=== PATIENT | male | born 1995 | race Caucasian/White ===

== ENCOUNTER 2016-12-09 09:25 | Emergency (ER) | payer SELFPAY ==
[~2016-12-09] VITALS: Ht 180.3 cm; Wt 79.4 kg
[~2016-12-09 09:25] MED LIST: LIDO20SO PO
[2016-12-09 09:36] VITALS: BP 137/84
--- NOTE | 2016-12-09 09:36 | PHYS DOC ---
Past Medical History Past Medical History: Anxiety, Kidney Stone, Other Additional Past Medical Histor: Heart Palpitations Past Surgical History: Other Additional Past Surgical Histo: Lithotripsy Alcohol Use: Rarely Drug Use: None Adult General Chief Complaint Chief Complaint: SORE THROAT [facility] HPI Patient is a 21 year old male who presents with sore throat. States having sinus congestion draining for the last several days. He states that throats or been bothered for the last 2 days. He states he's felt feverish at times. He denies any trismus or change in his voice. He had taken Motrin and states has not been helping. He denies cough or shortness of breath. He states when he does get up to walk he feels weaker than normal. Review of Systems Review of Systems Constitutional: Denies fever or chills [] Eyes: Denies change in visual acuity, redness, or eye pain [] HENT: Positive for nasal congestion or sore throat [] Respiratory: Denies cough or shortness of breath [] Cardiovascular: No additional information not addressed in HPI [] GI: Denies abdominal pain, nausea, vomiting, bloody stools or diarrhea [] : Denies dysuria or hematuria [] Musculoskeletal: Denies back pain or joint pain [] Integument: Denies rash or skin lesions [] Neurologic: Denies headache, focal weakness or sensory changes [] Endocrine: Denies polyuria or polydipsia [] Allergies Allergies Allergies Coded Allergies Type Severity Reaction Last Updated Verified No Known Drug Allergies 07/26/15 No Physical Exam Physical Exam Constitutional: Well developed, well nourished, no acute distress, non-toxic appearance. [] HENT: Normocephalic, atraumatic, bilateral external ears normal, oropharynx moist with erythema throughout the posterior pharynx without any exudates, nose normal. Patient denies any tenderness across the maxillary facial sinuses [] Eyes: PERRLA, EOMI, conjunctiva normal, no discharge. [] Neck: Normal range of motion, no tenderness, supple, no stridor. [] Cardiovascular:Heart rate regular rhythm, no murmur [] Lungs & Thorax: Bilateral breath sounds clear to auscultation [] Abdomen: Bowel sounds normal, soft, no tenderness, no masses, no pulsatile masses. [] Skin: Warm, dry, no erythema, no rash. [] Back: No tenderness, no CVA tenderness. [] Extremities: No tenderness, no cyanosis, no clubbing, ROM intact, no edema. [] Neurologic: Alert and oriented X 3, normal motor function, normal sensory function, no focal deficits noted. [] Psychologic: Affect normal, judgement normal, mood normal. [] Current Patient Data Vital Signs Vital Signs Date Time Temp Pulse Resp B/P Pulse Ox O2 Delivery O2 Flow Rate FiO2 12/09/16 09:36 99.0 94 16 100 Room Air 99.0 EKG EKG [] Radiology/Procedures Radiology/Procedures [] Impressions: Strep throat Course & Med Decision Making Course & Med Decision Making Pertinent Labs and Imaging studies reviewed. (See chart for details) He is positive for strep throat. We'll discharge home with amoxicillin 500 mg twice a day for the next 10 days. Patient's follow-up primary care physician he is to return to ER for worsening pain or other concerns. He is also be discharged with tablets of Viola. Dragon Disclaimer Dragon Disclaimer This electronic medical record was generated, in whole or in part, using a voice recognition dictation system. Departure Departure Impression: Primary Impression: Pharyngitis, acute Disposition: HOME, SELF-CARE Condition: STABLE Referrals: NO PCP (PCP) Patient Instructions: Strep Throat Additional Instructions: You do have strep throat. He taken amoxicillin next 10 days. Return ER if you have trouble swallowing, breathing, speaking or other concerns. You can take Viola to narcotic pain medicine as needed for pain. Please do not drive while taking this medicine while driving, as it can impair your judgment and make you sleepy. Scripts Hydrocodone/Apap 5-325 (Viola 5-325 Tablet)1 Each Tablet1-2 Tab PO PRN Q6HRS PRN PAIN #14 TAB Ref 0 Prov:NATALIYA TORRES MD 12/09/16 Amoxicillin 500 Mg Capsule1 Cap PO BID #20 CAP Prov:NATALIYA TORRES MD 12/09/16 NATALIYA TORRES MD Dec 09, 2016 09:36
[2016-12-09 10:22] LABS: NEGATIVE OBC STREP NEG; POSITIVE OBC STREP POS
[2016-12-09] MEDS ORDERED: HYDR-971 PO (10:22)
[2016-12-09] MEDS ORDERED: AMOX500C PO (10:22)
== END 2016-12-09 10:44 | disposition home or self-care (01) ==
LOC: ER 09:25
DX: J02.0 Streptococcal pharyngitis (principal); F41.9 Anxiety disorder, unspecified; Z87.442 Personal history of urinary calculi
CPT/HCPCS: 87880; 99283

== ENCOUNTER 2016-12-09 20:39 | Emergency (ER) | payer SELFPAY ==
[~2016-12-09] VITALS: Ht 180.3 cm; Wt 79.4 kg
[~2016-12-09 20:39] MED LIST changes: +AMOX500C PO; +HYDR-971 PO
[2016-12-09 21:26] VITALS: BP 142/72
[2016-12-09] MEDS ORDERED: DEXAMETHASONE SOD PHOS 20 MG/5 ML VIAL. IM ONE (21:45)
[2016-12-09] MEDS ORDERED: IBUPROFEN 600 MG TABLET. PO ONE (21:45)
[2016-12-09] MEDS ORDERED: PENICILLIN G BENZATHINE LA 1,200,000 UNIT/2 ML DISP.SYRIN. IM ONE (21:45)
--- NOTE | 2016-12-09 22:07 | PHYS DOC ---
Past Medical History Past Medical History: Anxiety, Kidney Stone, Other Additional Past Medical Histor: Heart Palpitations Past Surgical History: Other Additional Past Surgical Histo: Lithotripsy Additional Information: Nonsmoker Alcohol Use: Rarely Drug Use: None Adult General Chief Complaint Chief Complaint: FEVER HPI HPI Patient is a 21 year old male who presents with sore throat and fever. He was seen today in this emergency department and diagnosed with strep throat. He was prescribed amoxicillin and Del Rey. He states that he took 2 doses of the amoxicillin and 3 doses of the [place] without relief of his pain in his throat or his fever. He had a temperature up to 103.5F this evening. He last took Del Rey at 1800. He does not have a PCP. Review of Systems Review of Systems Constitutional: Reports fever. Eyes: Denies change in visual acuity, redness, or eye pain. [] HENT: Denies nasal congestion. Reports sore throat and bilateral ear pain. Respiratory: Denies cough or shortness of breath. [] Integument: Denies rash or skin lesions. [] Neurologic: Denies headache. [] Current Medications Current Medications Current Medications Medications (Trade) Dose Ordered Sig/Toni Start Time Stop Time Status Last Admin Dose Admin Dexamethasone Sodium Phosphate (Decadron) 10 mg 1X ONCE 12/09/16 21:45 12/09/16 21:46 DC 12/09/16 21:45 10 MG Ibuprofen (Motrin) 600 mg 1X ONCE 12/09/16 21:45 12/09/16 21:46 DC 12/09/16 21:45 600 MG Penicillin G Benzathine (Bicillin L-A) 1,200,000 unit 1X ONCE 12/09/16 21:45 12/09/16 21:46 DC 12/09/16 21:47 1,200,000 UNIT Allergies Allergies Allergies Coded Allergies Type Severity Reaction Last Updated Verified No Known Drug Allergies 07/26/15 No Physical Exam Physical Exam Constitutional: Well developed, well nourished, no acute distress, non-toxic appearance. [] HENT: Normocephalic, atraumatic, bilateral external ears normal, oropharynx moist, no oral exudates, nose normal. Bilateral TMs without erythema or bulging. There is posterior pharyngeal erythema with bilateral tonsillar edema and exudates. There is no peritonsillar abscess or uvular deviation. There is no trismus. Eyes: PERRLA, EOMI, conjunctiva normal, no discharge. [] Neck: Normal range of motion, no tenderness, supple, no stridor. [] Cardiovascular: Heart rate regular rhythm, no murmur [] Lungs & Thorax: Bilateral breath sounds clear to auscultation without wheezes, rales, or rhonchi. Skin: Warm, dry, no erythema, no rash. [] Neurologic: Alert and oriented X 3, normal motor function, normal sensory function, no focal deficits noted. [] Psychologic: Affect normal, judgement normal, mood normal. [] Current Patient Data Vital Signs Vital Signs Date Time Temp Pulse Resp B/P Pulse Ox O2 Delivery O2 Flow Rate FiO2 12/09/16 21:26 101.5 104 18 97 Room Air 101.5 EKG EKG [] Radiology/Procedures Radiology/Procedures [] Course & Med Decision Making Course & Med Decision Making Pertinent Labs and Imaging studies reviewed. (See chart for details) Patient presents with fever and sore throat with diagnosis of strep throat today. He is given IM Bicillin LA and Decadron in the emergency department this evening. He is instructed to discontinue the amoxicillin prescribed previously today. He may continue taking Del Rey for pain and fever. He is instructed to take ibuprofen for fever as well but not to add additional Tylenol for fever relief. He is instructed to increase fluids and rest. Return precautions were discussed. He verbalizes understanding and agrees with plan. Dragon Disclaimer Dragon Disclaimer This electronic medical record was generated, in whole or in part, using a voice recognition dictation system. Departure Departure Impression: Primary Impression: Strep throat Disposition: 01 HOME, SELF-CARE Condition: STABLE Referrals: NO PCP (PCP) Patient Instructions: Strep Throat, [id number] Additional Instructions: You were given a shot of antibiotics and a shot of steroids in the emergency department this evening. You do not need to complete the antibiotic pills prescribed earlier today. The antibiotic shot is sufficient to treat your strep throat. You may continue to take the pain medication prescribed earlier today. This medication contains Tylenol, which will also help your fever. You may also take ibuprofen to decrease her fever. Do not take Tylenol in addition to the prescribed pain medication. To help your sore throat, you may mix liquid Benadryl and Maalox in a 50/50 solution. Swish, gargle, and either swallow or spit out. Return to the emergency department if you have high fever not responding to medication, difficulty breathing, difficulty swallowing, or other new or concerning symptoms. CONSUELO CUELLAR Dec 09, 2016 22:07
== END 2016-12-09 22:13 | disposition home or self-care (01) ==
LOC: ER 20:39
DX: J02.0 Streptococcal pharyngitis (principal); H92.03 Otalgia, bilateral; F41.9 Anxiety disorder, unspecified; Z87.442 Personal history of urinary calculi
CPT/HCPCS: 96372; 99284; J0561; J1100

== ENCOUNTER 2017-08-29 21:30 | Emergency (ER) | payer SELFPAY ==
[~2017-08-29] VITALS: Ht 177.8 cm; Wt 81.6 kg
--- NOTE | 2017-08-29 21:36 | PHYS DOC ---
Past Medical History Past Medical History: Anxiety, Kidney Stone, Other Additional Past Medical Histor: Heart Palpitations Past Surgical History: Other Additional Past Surgical Histo: Lithotripsy Alcohol Use: Rarely Drug Use: None Adult General Chief Complaint Chief Complaint: FLANK PAIN HPI HPI Patient is a 21 year old male who presents with dark colored urine. He states he has a history of kidney stones and on he notices urine very dark. He drank a lot of water. Upon Wednesday and Wednesday it returned. He states he's had intermittent left flank pain and presents to ER because his urine is dark again. He denies any pain currently, denies any nausea vomiting, states his been eating and drinking fine. He denies any drug or alcohol use. He denies any supplement's. Review of Systems Review of Systems Constitutional: Denies fever or chills [] Eyes: Denies change in visual acuity, redness, or eye pain [] HENT: Denies nasal congestion or sore throat [] Respiratory: Denies cough or shortness of breath [] Cardiovascular: No additional information not addressed in HPI [] GI: Denies abdominal pain, nausea, vomiting, bloody stools or diarrhea [] : Denies dysuria or hematuria [] Musculoskeletal: Denies back pain or joint pain [] Integument: Denies rash or skin lesions [] Neurologic: Denies headache, focal weakness or sensory changes [] Endocrine: Denies polyuria or polydipsia [] All other systems were reviewed and found to be within normal limits, except as documented in this note. Current Medications Current Medications Current Medications Medications (Trade) Dose Ordered Sig/[facility] Start Time Stop Time Status Last Admin Dose Admin Ondansetron HCl (Zofran) 4 mg 1X ONCE 08/29/17 22:00 08/29/17 22:01 DC Sodium Chloride 1,000 ml @ 1,000 mls/hr Q1H 08/29/17 22:00 08/29/17 22:59 DC 08/29/17 22:10 1,000 MLS/HR Allergies Allergies Allergies Coded Allergies Type Severity Reaction Last Updated Verified No Known Drug Allergies 07/26/15 No Physical Exam Physical Exam Constitutional: Well developed, well nourished, no acute distress, non-toxic appearance. [] HENT: Normocephalic, atraumatic, bilateral external ears normal, oropharynx moist, no oral exudates, nose normal. [] Eyes: PERRLA, EOMI, conjunctiva normal, no discharge. [] Neck: Normal range of motion, no tenderness, supple, no stridor. [] Cardiovascular:Heart rate regular rhythm, no murmur [] Lungs & Thorax: Bilateral breath sounds clear to auscultation [] Abdomen: Bowel sounds normal, soft, no tenderness, no masses, no pulsatile masses. [] Skin: Warm, dry, no erythema, no rash. [] Back: No tenderness, no CVA tenderness. [] Extremities: No tenderness, no cyanosis, no clubbing, ROM intact, no edema. [] Neurologic: Alert and oriented X 3, normal motor function, normal sensory function, no focal deficits noted. [] Psychologic: Affect normal, judgement normal, mood normal. [] Current Patient Data Vital Signs Vital Signs Date Time Temp Pulse Resp B/P (MAP) Pulse Ox O2 Delivery O2 Flow Rate FiO2 08/29/17 21:45 97.9 79 18 172/96 (121) 98 Room Air 97.9 Lab Values Laboratory Tests Test 08/29/17 22:05 White Blood Count 8.4 x10^3/uL (4.0-11.0) Red Blood Count 5.07 x10^6/uL (4.30-5.70) Hemoglobin 15.6 g/dL (13.0-17.5) Hematocrit 44.6 % (39.0-53.0) Mean Corpuscular Volume 88 fL (79-100) Mean Corpuscular Hemoglobin 31 pg (25-35) Mean Corpuscular Hemoglobin Concent 35 g/dL (31-37) Red Cell Distribution Width 12.2 % (11.5-14.5) Platelet Count 312 x10^3/uL (140-400) Neutrophils (%) (Auto) 54 % (31-73) Lymphocytes (%) (Auto) 38 % (24-48) Monocytes (%) (Auto) 6 % (0-9) Eosinophils (%) (Auto) 1 % (0-3) Basophils (%) (Auto) 1 % (0-3) Neutrophils # (Auto) 4.5 x10^3uL (1.8-7.7) Lymphocytes # (Auto) 3.2 x10^3/uL (1.0-4.8) Monocytes # (Auto) 0.5 x10^3/uL (0.0-1.1) Eosinophils # (Auto) 0.1 x10^3/uL (0.0-0.7) Basophils # (Auto) 0.1 x10^3/uL (0.0-0.2) Urine Collection Type Unknown Urine Color Yellow Urine Clarity Clear Urine pH 6.[address] 1.020 Urine Protein Negative mg/dL (NEG-TRACE) Urine Glucose (UA) Negative mg/dL (NEG) Urine Ketones (Stick) Negative mg/dL (NEG) Urine Blood Negative (NEG) Urine Nitrite Negative (NEG) Urine Bilirubin Negative (NEG) Urine Urobilinogen Dipstick 0.2 mg/dL (0.2 mg/dL) Urine Leukocyte Esterase Negative (NEG) Urine RBC Occ /HPF (0-2) Urine WBC Occ /HPF (0-4) Urine Squamous Epithelial Cells None /LPF Urine Amorphous Sediment Present /HPF Urine Bacteria 0 /HPF (0-FEW) Urine Mucus Slight /LPF Sodium Level 141 mmol/L (136-145) Potassium Level 3.6 mmol/L (3.5-5.1) Chloride Level 102 mmol/L (98-107) Carbon Dioxide Level 28 mmol/L (21-32) Anion Gap 11 (6-14) Blood Urea Nitrogen 15 mg/dL (8-26) Creatinine 1.3 mg/dL (0.7-1.3) Estimated GFR (Cockcroft-Gault) 69.7 Glucose Level 130 mg/dL (70-99) H Calcium Level 9.0 mg/dL (8.5-10.1) Total Bilirubin 0.4 mg/dL (0.2-1.0) Direct Bilirubin 0.1 mg/dL (0.0-0.2) Aspartate Amino Transferase (AST) 32 U/L (15-37) Alanine Aminotransferase (ALT) 66 U/L (16-63) H Alkaline Phosphatase 89 U/L (46-116) Creatine Kinase 145 U/L (39-308) Total Protein 7.9 g/dL (6.4-8.2) Albumin 4.4 g/dL (3.4-5.0) Urine Opiates Screen Neg (NEG) Urine Methadone Screen Neg (NEG) Urine Barbiturates Neg (NEG) Urine Phencyclidine Screen Neg (NEG) Urine Amphetamine/Methamphetamine Neg (NEG) Urine Benzodiazepines Screen Neg (NEG) Urine Cocaine Screen Neg (NEG) Urine Cannabinoids Screen Neg (NEG) Urine Ethyl Alcohol Neg (NEG) Laboratory Tests 08/29/17 22:05 Laboratory Tests 08/29/17 22:05 EKG EKG [] Radiology/Procedures Impressions: Dark urine Course & Med Decision Making Course & Med Decision Making Pertinent Labs and Imaging studies reviewed. (See chart for details) Labs are nonacute. His UA does not show any blood he's not having any pain or discomfort. Therefore I do not believe he is getting kidney stone. He is instructed to stay hydrated and follow-up with primary care physician and urology if his symptoms come back. She being discharged in stable condition this time. Dragon Disclaimer Dragon Disclaimer This electronic medical record was generated, in whole or in part, using a voice recognition dictation system. Departure Departure Impression: Primary Impression: Urine discoloration Disposition: HOME, SELF-CARE Condition: STABLE Referrals: NO PCP (PCP) Patient Instructions: Clean Catch Urine Collection Additional Instructions: Your urinalysis, blood work did not show any acute abnormality's. Since your not having any pain or any other concerns at this time, you are being discharged home. If you develop flank pain, fevers, nausea or other concerns please return back to ER. [place] [id number] [address] [address]. Phone number is [phone]. You will need to find a primary care physician. You've been provided a list of primary care physicians. Please follow-up with the primary care physician within the next few days. NATALIYA TORRES MD Aug 29, 2017 21:36
[2017-08-29] MEDS ORDERED: ONDANSETRON PF 4 MG/2 ML VIAL. IV ONE (22:00)
[2017-08-29] MEDS ORDERED: IV NORMAL SALINE 1000ML BAG 1,000 ML IV SCH (22:00)
[2017-08-29 22:13] LABS: BASO # 0.1 x10^3/uL (0.0-0.2); BASO % 1 % (0-3); EOS % 1 % (0-3); HEMATOCRIT 44.6 % (39.0-53.0); HEMOGLOBIN 15.6 g/dL (13.0-17.5); LYMPH # 3.2 x10^3/uL (1.0-4.8); LYMPH % 38 % (24-48); MEAN CORPUSCULAR HEMOGLOBIN 31 pg (25-35); MEAN CORPUSCULAR HGB CONC 35 g/dL (31-37); MEAN CORPUSCULAR VOLUME 88 fL (79-100); MONO % 6 % (0-9); NEUT % 54 % (31-73); PLATELET COUNT 312 x10^3/uL (140-400); RED BLOOD COUNT 5.07 x10^6/uL (4.30-5.70); RED CELL DISTRIBUTION WIDTH 12.2 % (11.5-14.5); WHITE BLOOD COUNT 8.4 x10^3/uL (4.0-11.0)
[2017-08-29 22:14] LABS: BILIRUBIN,URINE NEGATIVE (NEG); GLUCOSE,URINE NEGATIVE (NEG); NITRITE,URINE NEGATIVE (NEG); PH,URINE 6.5; PROTEIN,URINE NEGATIVE (NEG-TRACE); UROBILINOGEN,URINE 0.2 mg/dL (0.2 mg/dL)
[2017-08-29 22:20] LABS: BACTERIA,URINE 0 /HPF (0-FEW); RBC,URINE OCC /HPF (0-2); WBC,URINE OCC /HPF (0-4)
[2017-08-29 22:22] LABS: CREATININE 1.3 mg/dL (0.7-1.3); GFR 69.7; POTASSIUM 3.6 mmol/L (3.5-5.1)
[2017-08-29 22:30] LABS: ALBUMIN 4.4 g/dL (3.4-5.0); DIRECT BILIRUBIN 0.1 mg/dL (0.0-0.2); TOTAL BILIRUBIN 0.4 mg/dL (0.2-1.0); TOTAL PROTEIN 7.9 g/dL (6.4-8.2)
[2017-08-29 23:10] LABS: BARBITURATES NEG (NEG); BENZODIAZEPINES NEG (NEG); CANNABINOIDS NEG (NEG); COCAINE NEG (NEG); METHADONE NEG (NEG); OPIATES NEG (NEG); PHENCYCLIDINE NEG (NEG)
[2017-08-29 23:15] VITALS: BP 125/65
== END 2017-08-29 23:45 | disposition home or self-care (01) ==
LOC: ER 21:30
DX: R39.198 Other difficulties with micturition (principal); Z87.442 Personal history of urinary calculi
CPT/HCPCS: 36415; 80048; 80076; 80307; 81001; 82550; 85025; 96360; 99284; J7030; G0479

== ENCOUNTER 2017-09-20 09:06 | Emergency (ER) | payer SELFPAY ==
[2017-09-20 10:15] LABS: ADD MAN DIFF? NO
[2017-09-20 10:18] LABS: BASO % 1 % (0-3); EOS # 0.2 x10^3/uL (0.0-0.7); EOS % 2 % (0-3); HEMATOCRIT 47.4 % (39.0-53.0); HEMOGLOBIN 16.2 g/dL (13.0-17.5); LYMPH # 2.5 x10^3/uL (1.0-4.8); LYMPH % 34 % (24-48); MEAN CORPUSCULAR HEMOGLOBIN 31 pg (25-35); MEAN CORPUSCULAR HGB CONC 34 g/dL (31-37); MEAN CORPUSCULAR VOLUME 90 fL (79-100); MONO # 0.7 x10^3/uL (0.0-1.1); MONO % 9 % (0-9); NEUT # 4.1 x10^3uL (1.8-7.7); NEUT % 55 % (31-73); PLATELET COUNT 320 x10^3/uL (140-400); RED BLOOD COUNT 5.29 x10^6/uL (4.30-5.70); WHITE BLOOD COUNT 7.5 x10^3/uL (4.0-11.0)
[2017-09-20] MEDS: IBUPROFEN 800 MG TABLET. PO (10:26)
[2017-09-20] MEDS: HYDROcodone/APAP 5/325MG 1 TAB TABLET PO (10:26)
[2017-09-20 10:43] LABS: URIC ACID 9.9 mg/dL (3.5-7.2)
[2017-09-20] MEDS: COLCHICINE 0.6 MG TABLET PO (11:20)
== END 2017-09-20 11:35 | disposition home or self-care (01) ==
LOC: ER 09:06
DX: M79.674 Pain in right toe(s) (principal); R79.89 Other specified abnormal findings of blood chemistry; M79.89 Other specified soft tissue disorders; F41.9 Anxiety disorder, unspecified; Z87.442 Personal history of urinary calculi
CPT/HCPCS: 36415; 73660; 84550; 85025; 99285

== ENCOUNTER 2017-10-13 13:16 | Emergency (ER) | payer OTHER ==
[2017-10-13 14:48] LABS: BILIRUBIN,URINE NEGATIVE (NEG); CLARITY,URINE CLEAR; COLOR,URINE YELLOW; GLUCOSE,URINE NEGATIVE (NEG); NITRITE,URINE NEGATIVE (NEG); PROTEIN,URINE NEGATIVE (NEG-TRACE); UROBILINOGEN,URINE 0.2 mg/dL (0.2 mg/dL)
[2017-10-13 15:03] LABS: BACTERIA,URINE 0 /HPF (0-FEW); RBC,URINE RARE /HPF (0-2); SQUAMOUS EPITHELIAL CELL,UR OCC /LPF; WBC,URINE RARE /HPF (0-4)
[2017-10-13 16:25] LABS: ADD MAN DIFF? NO
[2017-10-13] MEDS: HYDROmorphone 2 MG/ML VIAL IV (16:25)
[2017-10-13] MEDS: ONDANSETRON PF 4 MG/2 ML VIAL. IV (16:25)
[2017-10-13 16:27] LABS: BASO % 1 % (0-3); EOS # 0.1 x10^3/uL (0.0-0.7); EOS % 1 % (0-3); HEMATOCRIT 44.3 % (39.0-53.0); HEMOGLOBIN 15.5 g/dL (13.0-17.5); LYMPH # 2.1 x10^3/uL (1.0-4.8); LYMPH % 31 % (24-48); MEAN CORPUSCULAR HEMOGLOBIN 31 pg (25-35); MEAN CORPUSCULAR HGB CONC 35 g/dL (31-37); MEAN CORPUSCULAR VOLUME 88 fL (79-100); MONO # 0.4 x10^3/uL (0.0-1.1); MONO % 7 % (0-9); NEUT % 61 % (31-73); PLATELET COUNT 302 x10^3/uL (140-400); RED BLOOD COUNT 5.06 x10^6/uL (4.30-5.70); RED CELL DISTRIBUTION WIDTH 12.2 % (11.5-14.5); WHITE BLOOD COUNT 6.7 x10^3/uL (4.0-11.0)
[2017-10-13 16:36] LABS: ANION GAP 8 (6-14); BLOOD UREA NITROGEN 12 mg/dL (8-26); BUN/CREATININE RATIO 11 (6-20); CALCIUM 9.3 mg/dL (8.5-10.1); CARBON DIOXIDE 28 mmol/L (21-32); CHLORIDE 102 mmol/L (98-107); CREATININE 1.1 mg/dL (0.7-1.3); GFR 84.5; GLUCOSE 91 mg/dL (70-99); POTASSIUM 4.1 mmol/L (3.5-5.1); SODIUM 138 mmol/L (136-145)
[2017-10-13 16:42] LABS: ALBUMIN 4.3 g/dL (3.4-5.0); ALBUMIN/GLOBULIN RATIO 1.1 (1.0-1.7); ALK PHOS 92 U/L (46-116); ALT (SGPT) 76 U/L (16-63); AST (SGOT) 31 U/L (15-37); TOTAL BILIRUBIN 0.5 mg/dL (0.2-1.0); TOTAL PROTEIN 8.2 g/dL (6.4-8.2)
[2017-10-13] MEDS: IV NORMAL SALINE 1000ML BAG 1,000 ML IV (16:45)
== END 2017-10-13 18:00 | disposition home or self-care (01) ==
LOC: ER 13:16
DX: N20.1 Calculus of ureter (principal); Z87.442 Personal history of urinary calculi; Z88.8 Allergy status to other drugs, medicaments and biological substances
CPT/HCPCS: 36415; 74176; 80053; 81001; 85025; 87491; 87591; 96361; 96374; 96375; 99285-25; J1170; J2405; J7030

== ENCOUNTER 2018-09-22 08:38 | Emergency (ER) | payer SELFPAY ==
[~2018-09-22] VITALS: Ht 177.8 cm; Wt 86.2 kg
[~2018-09-22 08:38] MED LIST changes: +COLC0.6C3 PO; +HYDR-3164 PO; -HYDR-971 PO; +IBUP-1060 PO; +MECL25TA3 PO; +ONDA4TAB10 PO; +OXYC1TAB15 PO; +TAMS0.4C97 PO
[2018-09-22 08:59] VITALS: BP 152/87
--- NOTE | 2018-09-22 09:42 | PHYS DOC ---
Past Medical History Past Medical History: Anxiety, Asthma, Kidney Stone, Other Additional Past Medical Histor: Heart Palpitations; ear infections, strep Past Surgical History: Other Additional Past Surgical Histo: Lithotripsy Alcohol Use: Rarely Drug Use: None Adult General Chief Complaint Chief Complaint: SORE THROAT HPI HPI Patient is a 22 year old male who presents to the emergency room today with complaints of sore throat since this morning. He denies any fever, ear pain, cough, nausea, vomiting, diarrhea, or rash. Patient states that he has had a lot of postnasal drainage with this sore throat. He denies any shortness of breath or difficulty swallowing. Review of Systems Review of Systems Constitutional: Denies fever or chills [] HENT: See history of present illness Respiratory: Denies cough or shortness of breath [] GI: Denies abdominal pain, nausea, vomiting, or diarrhea [] Integument: Denies rash or skin lesions [] Neurologic: Denies headache, focal weakness or sensory changes [] Complete systems were reviewed and found to be within normal limits, except as documented in this note. Allergies Allergies Allergies Coded Allergies Type Severity Reaction Last Updated Verified Corticosteroids (Glucocorticoids) Allergy Intermediate 12/21/17 Yes Physical Exam Physical Exam Constitutional: Well developed, well nourished, no acute distress, non-toxic appearance. [] HENT: Normocephalic, atraumatic, bilateral external ears normal, bilateral TMs normal, cobblestone appearance of posterior pharynx, 2+ tonsils bilaterally, tonsil stone present in left tonsil, moderate erythema posterior pharynx, oropharynx moist, no oral exudates, nose normal. [] Eyes: conjunctiva normal, no discharge. [] Neck: Normal range of motion, no tenderness, no lymphadenopathy, no stridor. [] Cardiovascular:Heart rate regular rhythm, no murmur [] Lungs & Thorax: Bilateral breath sounds clear to auscultation [] Skin: Warm, dry, no erythema, no rash. [] Neurologic: Alert and oriented X 3, normal motor function, normal sensory function, no focal deficits noted. [] Psychologic: Affect normal, judgement normal, mood normal. [] Current Patient Data Vital Signs Vital Signs Date Time Temp Pulse Resp B/P (MAP) Pulse Ox O2 Delivery O2 Flow Rate FiO2 09/22/18 08:59 98.1 100 20 152/87 (108) 98 Room Air 98.1 EKG EKG [] Radiology/Procedures Radiology/Procedures [] Course & Med Decision Making Course & Med Decision Making Pertinent Labs and Imaging studies reviewed. (See chart for details) [] Dragon Disclaimer Dragon Disclaimer This electronic medical record was generated, in whole or in part, using a voice recognition dictation system. Departure Departure Impression: Primary Impression: Pharyngitis, acute Additional Impression: Strep throat Disposition: HOME, SELF-CARE Condition: STABLE Referrals: MELISSA REDMAN (PCP) Patient Instructions: Viral and Bacterial Pharyngitis, [id number] Additional Instructions: Recommend warm salt water gargles as needed for relief of discomfort. Alternate Tylenol and ibuprofen as needed for fever/pain. Follow-up with primary care doctor if symptoms persist. Return to the ER if symptoms worsen. Problem Qualifiers Primary Impression: Pharyngitis, acute Pharyngitis/tonsillitis etiology: unspecified etiology Qualified Codes: J02.9 - Acute pharyngitis, unspecified JT MARQUEZ YOKE SETTER Sep 22, 2018 09:42
[2018-09-22] MEDS ORDERED: DEXAMETHASONE SOD PHOS 20 MG/5 ML VIAL. PO ONE (09:45)
== END 2018-09-22 10:02 | disposition home or self-care (01) ==
LOC: ER 08:38
DX: J02.0 Streptococcal pharyngitis (principal); B95.5 Unspecified streptococcus as the cause of diseases classified elsewhere; J45.909 Unspecified asthma, uncomplicated; Z88.8 Allergy status to other drugs, medicaments and biological substances
CPT/HCPCS: 87070; 87880; 99283

== ENCOUNTER 2019-06-01 14:49 | Emergency (ER) | payer OTHER ==
[~2019-06-01] VITALS: Ht 182.9 cm; Wt 97.5 kg
[2019-06-01] MEDS ORDERED: LABETALOL 20 MG/4 ML DISP.SYRIN. IVP STA (15:07)
--- NOTE | 2019-06-01 15:11 | PHYS DOC ---
Past Medical History Past Medical History: Anxiety, Asthma, Kidney Stone, Other Additional Past Medical Histor: Heart Palpitations; ear infections, strep (JAVID CORONADO APRN) Past Surgical History: Other Additional Past Surgical Histo: Lithotripsy (JAVID CORONADO APRN) Alcohol Use: Rarely Drug Use: None (JAVID CORONADO APRN) Adult General Chief Complaint Chief Complaint: HEADACHE HPI HPI Patient is a 23 year old male who presents with a headache this been ongoing for 2 weeks. The patient does not have a history of migraines. The patient states that the headache is been accompanied by blurry vision. The patient's blood pressure in the room was 170/92. She rates his pain is 2 out of 10 in severity and sharp, has been taking ibuprofen at home which is helped his headache. (JAVID CORONADO APRN) Review of Systems Review of Systems Constitutional: Denies fever or chills [] Eyes: Denies change in visual acuity, redness, or eye pain [] HENT: Denies nasal congestion or sore throat [] Respiratory: Denies cough or shortness of breath [] Cardiovascular: No additional information not addressed in HPI [] GI: Denies abdominal pain, nausea, vomiting, bloody stools or diarrhea [] : Denies dysuria or hematuria [] Musculoskeletal: Denies back pain or joint pain [] Integument: Denies rash or skin lesions [] Neurologic: Reports headache and bilateral blurry vision. Denies focal weakness or sensory changes [] Endocrine: Denies polyuria or polydipsia [] Complete systems were reviewed and found to be within normal limits, except as documented in this note. (JAVID CORONADO APRN) Current Medications Current Medications Current Medications Medications (Trade) Dose Ordered Sig/Toni Start Time Stop Time Status Last Admin Dose Admin Labetalol HCl (Normodyne Iv Push) 10 mg 1X STAT 06/01/19 15:07 06/01/19 15:10 DC 06/01/19 15:21 10 MG (JUSTO VASQUEZ MD) Allergies Allergies Allergies Coded Allergies Type Severity Reaction Last Updated Verified Corticosteroids (Glucocorticoids) Allergy Intermediate 12/21/17 Yes (JUSTO VASQUEZ MD) Physical Exam Physical Exam Constitutional: Well developed, well nourished, no acute distress, non-toxic appearance. [] HENT: Normocephalic, atraumatic, bilateral external ears normal, oropharynx moist, no oral exudates, nose normal. [] Eyes: PERRLA, EOMI, conjunctiva normal, no discharge. [] Neck: Normal range of motion, no tenderness, supple, no stridor. [] Cardiovascular:Heart rate regular rhythm, no murmur [] Lungs & Thorax: Bilateral breath sounds clear to auscultation [] Abdomen: Bowel sounds normal, soft, no tenderness, no masses, no pulsatile masses. [] Skin: Warm, dry, no erythema, no rash. [] Back: No tenderness, no CVA tenderness. [] Extremities: No tenderness, no cyanosis, no clubbing, ROM intact, no edema. [] Neurologic: Alert and oriented X 3, normal motor function, normal sensory function, no focal deficits noted. Visuals weir are intact bilaterally. Psychologic: Affect normal, judgement normal, mood normal. [] (JAVID CORONADO APRN) Current Patient Data Vital Signs Vital Signs Date Time Temp Pulse Resp B/P (MAP) Pulse Ox O2 Delivery O2 Flow Rate FiO2 06/01/19 15:21 87 170/92 06/01/19 15:03 99.2 14 97 Room Air 99.2 (JUSTO VASQUEZ MD) Lab Values Laboratory Tests Test 06/01/19 15:17 White Blood Count 7.2 x10^3/uL (4.0-11.0) Red Blood Count 5.14 x10^6/uL (4.30-5.70) Hemoglobin 15.9 g/dL (13.0-17.5) Hematocrit 45.0 % (39.0-53.0) Mean Corpuscular Volume 88 fL (79-100) Mean Corpuscular Hemoglobin 31 pg (25-35) Mean Corpuscular Hemoglobin Concent 35 g/dL (31-37) Red Cell Distribution Width 12.4 % (11.5-14.5) Platelet Count 298 x10^3/uL (140-400) Neutrophils (%) (Auto) 57 % (31-73) Lymphocytes (%) (Auto) 34 % (24-48) Monocytes (%) (Auto) 7 % (0-9) Eosinophils (%) (Auto) 2 % (0-3) Basophils (%) (Auto) 1 % (0-3) Neutrophils # (Auto) 4.1 x10^3/uL (1.8-7.7) Lymphocytes # (Auto) 2.4 x10^3/uL (1.0-4.8) Monocytes # (Auto) 0.5 x10^3/uL (0.0-1.1) Eosinophils # (Auto) 0.1 x10^3/uL (0.0-0.7) Basophils # (Auto) 0.0 x10^3/uL (0.0-0.2) Sodium Level 143 mmol/L (136-145) Potassium Level 4.3 mmol/L (3.5-5.1) Chloride Level 105 mmol/L (98-107) Carbon Dioxide Level 29 mmol/L (21-32) Anion Gap 9 (6-14) Blood Urea Nitrogen 11 mg/dL (8-26) Creatinine 1.1 mg/dL (0.7-1.3) Estimated GFR (Cockcroft-Gault) 83.0 BUN/Creatinine Ratio 10 (6-20) Glucose Level 103 mg/dL (70-99) H Calcium Level 9.8 mg/dL (8.5-10.1) Total Bilirubin 0.4 mg/dL (0.2-1.0) Aspartate Amino Transferase (AST) 44 U/L (15-37) H Alanine Aminotransferase (ALT) 106 U/L (16-63) H Alkaline Phosphatase 82 U/L (46-116) Troponin I Quantitative < 0.017 ng/mL (0.000-0.055) Total Protein 8.0 g/dL (6.4-8.2) Albumin 4.3 g/dL (3.4-5.0) Albumin/Globulin Ratio 1.2 (1.0-1.7) Laboratory Tests 06/01/19 15:17 Laboratory Tests 06/01/19 15:17 (JUSTO VASQUEZ MD) Lab Values Laboratory Tests Test 06/01/19 15:17 White Blood Count 7.2 x10^3/uL (4.0-11.0) Red Blood Count 5.14 x10^6/uL (4.30-5.70) Hemoglobin 15.9 g/dL (13.0-17.5) Hematocrit 45.0 % (39.0-53.0) Mean Corpuscular Volume 88 fL (79-100) Mean Corpuscular Hemoglobin 31 pg (25-35) Mean Corpuscular Hemoglobin Concent 35 g/dL (31-37) Red Cell Distribution Width 12.4 % (11.5-14.5) Platelet Count 298 x10^3/uL (140-400) Neutrophils (%) (Auto) 57 % (31-73) Lymphocytes (%) (Auto) 34 % (24-48) Monocytes (%) (Auto) 7 % (0-9) Eosinophils (%) (Auto) 2 % (0-3) Basophils (%) (Auto) 1 % (0-3) Neutrophils # (Auto) 4.1 x10^3/uL (1.8-7.7) Lymphocytes # (Auto) 2.4 x10^3/uL (1.0-4.8) Monocytes # (Auto) 0.5 x10^3/uL (0.0-1.1) Eosinophils # (Auto) 0.1 x10^3/uL (0.0-0.7) Basophils # (Auto) 0.0 x10^3/uL (0.0-0.2) Sodium Level 143 mmol/L (136-145) Potassium Level 4.3 mmol/L (3.5-5.1) Chloride Level 105 mmol/L (98-107) Carbon Dioxide Level 29 mmol/L (21-32) Anion Gap 9 (6-14) Blood Urea Nitrogen 11 mg/dL (8-26) Creatinine 1.1 mg/dL (0.7-1.3) Estimated GFR (Cockcroft-Gault) 83.0 BUN/Creatinine Ratio 10 (6-20) Glucose Level 103 mg/dL (70-99) H Calcium Level 9.8 mg/dL (8.5-10.1) Total Bilirubin 0.4 mg/dL (0.2-1.0) Aspartate Amino Transferase (AST) 44 U/L (15-37) H Alanine Aminotransferase (ALT) 106 U/L (16-63) H Alkaline Phosphatase 82 U/L (46-116) Troponin I Quantitative < 0.017 ng/mL (0.000-0.055) Total Protein 8.0 g/dL (6.4-8.2) Albumin 4.3 g/dL (3.4-5.0) Albumin/Globulin Ratio 1.2 (1.0-1.7) Laboratory Tests 06/01/19 15:17 Laboratory Tests 06/01/19 15:17 (JAVID CORONADO APRN) EKG EKG EKG interpreted by Dr. Moon Sullivan with rate of 82. NO STEMI.[] (JAVID CORONADO APRN) Radiology/Procedures Radiology/Procedures [][facility] [address] [place] [address] IMAGING REPORT Signed PATIENT: CORA MANN ACCOUNT: [id number] : 1995 LOCATION: ER AGE: 23 SEX: M EXAM STATUS: REG ER ORD. PHYSICIAN: JAVID CORONADO APRN REASON: headache PROCEDURE: CT HEAD WO CONTRAST PQRS Compliance statement: One or more of the following individualized dose reduction techniques were utilized for this examination: 1. Automated exposure control. 2. Adjustment of the mA and/or kV according to patient size. 3. Use of iterative reconstruction technique. Indication:Headache. TECHNIQUE: CT head without IV contrast COMPARISON: 12/21/2017. FINDINGS: No pathologic extra-axial or intra-axial fluid collection. The ventricles and basal cisterns are within normal limits. No acute intracranial bleed. No focal loss of brady-white differentiation. Visualized orbits within normal limits. No suspicious calvarial lesion. Visualized paranasal sinuses and mastoid air cells are clear. IMPRESSION: No acute intracranial process on this noncontrast CT. Electronically signed by: Jose Urena DO (06/01/2019 4:04 PM) [id number] DICTATED and SIGNED BY: JOSE URENA DO DATE: 06/01/19 1604 (JAVID CORONADO APRN) Course & Med Decision Making Course & Med Decision Making Pertinent Labs and Imaging studies reviewed. (See chart for details) Appears to be having a headache and blurry vision related to hypertension. Will check for end-organ damage and get labs, and CT. Labs and imaging is unremarkable. Will d/c home to follow up with Neuro and will start on Norvasc for HTN. Will have follow up with PCP for further management. (JAVID CORONADO APRN) Course & Med Decision Making 4:40 PM: ER PHYSICIAN ATTENDING NOTE: Patient presented to the emergency department for evaluation. He states that for the past 2 weeks, he has been having waxing and waning headaches, mostly starting from his neck, and radiating up towards the left occiput, but also present in the frontal area, between his eyes. He states he has some intermittent blurred vision, but this is not persistent. He reports his vision is normal now. He has not had any neck stiffness, fevers, or vomiting. He has not had any numbness or focal weakness. He states that he has had more serious headaches in the past, and he considers headaches to be somewhat mild. This is not "the worst headache of his life", and did not begin abruptly. He denies any trauma. PHYSICAL EXAM: CONSTITUTIONAL: Well developed, well nourished HEAD: normocephalic, atraumatic EENT: PERRL, EOMI. Conjunctivae normal color, sclerae non-icteric; moist mucous membranes. Nondilated funduscopic exam is unremarkable. NECK: Supple, non-tender; no meningismus. LUNGS: Lungs CTA, breathing even and unlabored. Normal air movement. HEART: Regular rate and rhythm, no murmur CHEST: No deformity; non-tender ABDOMEN: The abdomen is soft, and non-tender, no masses or bruits. EXTREM: Normal ROM; no deformity, no calf tenderness. Normal pulses palpable in all extremities. There is no pedal edema. SKIN: No rash; no diaphoresis NEURO: Alert; normal speech and cognition; CN's grossly intact; strength grossly intact without focal deficit. Rzicka-qljr-dznjte and heel keller testing is normal. Visual weir are intact by confrontation. BACK: No CVA TTP. I discussed test results with the patient, and we discussed doing a lumbar puncture . We discussed the limitations of CT in definitively ruling out subarachnoid hemorrhage, or ruling out meningitis, I discussed the potential life-threatening nature of these diagnoses. The patient expressed verbal understanding of the risks involved in potentially missing these diagnoses. After considering the risks/benefits of lumbar puncture, and answering all questions about the procedure, the patient declined to undergo a lumbar p uncture. The patient was mentally competent, and all questions were addressed. I stressed the need to return to the emergency department for worsening symptoms, or if the patient is willing to undergo further evaluation. The patient expressed verbal understanding. I have personally seen and examined the patient, and agree with the history, physical exam, and plan, as documented by mid-level provider. (JUSTO VASQUEZ MD) Dragon Disclaimer Dragon Disclaimer This electronic medical record was generated, in whole or in part, using a voice recognition dictation system. (JAVID CORONADO APRN) Departure Departure Impression: Primary Impression: Hypertension Additional Impression: Headache Disposition: HOME, SELF-CARE Condition: STABLE Referrals: MELISSA REDMAN (PCP) LATASHA BROOKS MD Patient Instructions: General Headache Without Cause, Hypertension Additional Instructions: Thank you for visiting [facility]. We appreciate you trusting us with your care. If any additional problems come up don't hesitate to return to visit us. Please follow up with your primary care provider so they can plan additional care if needed and know about the problem that you had. If symptoms worsen come back to the Emergency Department. Any concerning symptoms that start such as chest pain, shortness of air, weakness or numbness on one side of the body, running high fevers or any other concerning symptoms return to the ER. Please fill your medications at any pharmacy and follow the prescription instructions. Please start taking her blood pressure medicine daily and follow-up with her primary care doctor about this. Scripts Amlodipine Besylate (NORVASC) 5 Mg Tablet 1 TAB PO DAILY, #30 TAB 2 Refills Prov: JAVID CORONADO APRN 06/01/19 Problem Qualifiers Primary Impression: Hypertension Hypertension type: unspecified Qualified Codes: I10 - Essential (primary) hypertension Additional Impression: Headache Headache type: unspecified Headache chronicity pattern: acute headache Intractability: not intractable Qualified Codes: R51 - Headache JAVID CORONADO APRN Jun 01, 2019 15:11 JUSTO VASQUEZ MD Jun 01, 2019 16:49
[2019-06-01 15:24] LABS: BASO % 1 % (0-3); EOS # 0.1 x10^3/uL (0.0-0.7); EOS % 2 % (0-3); HEMOGLOBIN 15.9 g/dL (13.0-17.5); LYMPH # 2.4 x10^3/uL (1.0-4.8); LYMPH % 34 % (24-48); MEAN CORPUSCULAR HEMOGLOBIN 31 pg (25-35); MEAN CORPUSCULAR HGB CONC 35 g/dL (31-37); MEAN CORPUSCULAR VOLUME 88 fL (79-100); MONO # 0.5 x10^3/uL (0.0-1.1); MONO % 7 % (0-9); NEUT # 4.1 x10^3/uL (1.8-7.7); NEUT % 57 % (31-73); PLATELET COUNT 298 x10^3/uL (140-400); RED BLOOD COUNT 5.14 x10^6/uL (4.30-5.70); RED CELL DISTRIBUTION WIDTH 12.4 % (11.5-14.5); WHITE BLOOD COUNT 7.2 x10^3/uL (4.0-11.0)
[2019-06-01 15:33] VITALS: BP 159/80
[2019-06-01 15:33] LABS: CALCIUM 9.8 mg/dL (8.5-10.1); CREATININE 1.1 mg/dL (0.7-1.3); POTASSIUM 4.3 mmol/L (3.5-5.1)
[2019-06-01 15:38] LABS: ALBUMIN 4.3 g/dL (3.4-5.0); ALBUMIN/GLOBULIN RATIO 1.2 (1.0-1.7); TOTAL BILIRUBIN 0.4 mg/dL (0.2-1.0)
--- NOTE | 2019-06-01 16:04 | EKG ---
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
--- NOTE | 2019-06-01 16:06 | RAD ---
PQRS Compliance statement: One or more of the following individualized dose reduction techniques were utilized for this examination: 1. Automated exposure control. 2. Adjustment of the mA and/or kV according to patient size. 3. Use of iterative reconstruction technique. Indication:Headache. TECHNIQUE: CT head without IV contrast COMPARISON: 12/21/2017. FINDINGS: No pathologic extra-axial or intra-axial fluid collection. The ventricles and basal cisterns are within normal limits. No acute intracranial bleed. No focal loss of brady-white differentiation. Visualized orbits within normal limits. No suspicious calvarial lesion. Visualized paranasal sinuses and mastoid air cells are clear. IMPRESSION: No acute intracranial process on this noncontrast CT. Electronically signed by: Jose Urena DO (06/01/2019 4:04 PM) [id number]
[2019-06-01] MEDS ORDERED: AMLO5TAB4 PO (16:59)
== END 2019-06-01 17:22 | disposition home or self-care (01) ==
LOC: ER 14:49
DX: I10 Essential (primary) hypertension (principal); R51 Headache; J45.909 Unspecified asthma, uncomplicated; Z88.8 Allergy status to other drugs, medicaments and biological substances
CPT/HCPCS: 36415; 70450; 80053; 84484; 85025; 93005; 96374; 99285; J3490